=== PATIENT | male | born 1975 | race Caucasian/White ===

== ENCOUNTER 2016-12-11 08:37 | Emergency (ER) | payer OTHER ==
[2016-12-11 08:57] VITALS: BP 125/81
== END 2016-12-11 12:56 | disposition home or self-care (01) ==
LOC: ED 08:37
DX: A49.02 Methicillin resistant Staphylococcus aureus infection, unspecified site (principal); M70.32 Other bursitis of elbow, left elbow; Y93.89 Activity, other specified
CPT/HCPCS: 90715; Q0092

== ENCOUNTER 2016-12-26 10:06 | Inpatient (IN) | payer OTHER ==
[~2016-12-26] VITALS: Ht 172.7 cm; Wt 83.9 kg
[2016-12-26 11:16] LABS: BASOPHIL % 0.1 % (0-2); PLATELET COUNT 239 x10^3mcL (130-400)
[2016-12-26 11:58] LABS: CARBON DIOXIDE 26.2 mmol/L (21-32); CHLORIDE SERUM 107 mmol/L (98-107); CREATININE SERUM 0.9 mg/dL (0.7-1.3); GFR1 > 60 mL/min; GLUCOSE SERUM 120 mg/dL (74-106); POTASSIUM SERUM 3.7 mmol/L (3.5-5.1); SODIUM SERUM 141 mmol/L (136-145); TOTAL PROTEIN, SERUM 7.9 g/dL (6.4-8.2)
[2016-12-26 11:59] LABS: ALBUMIN 4.3 g/dL (3.4-5.0); BILIRUBIN TOTAL 0.7 mg/dL (0.20-1.00); CALCIUM 8.5 mg/dL (8.5-10.1)
[2016-12-26 12:00] LABS: ALKALINE PHOSPHATASE 97 U/L (46-116); ALT/SGPT 39 U/L (16-63); AST/SGOT 24 U/L (15-37)
[2016-12-26] MEDS ORDERED: PEPCID20 MG PO (12:42)
[2016-12-26] MEDS ORDERED: RISPERDAL1 M1 PO (12:42)
[2016-12-26] MEDS ORDERED: CLINDAMYCIN HC300 MG PO (12:42)
[2016-12-26] MEDS ORDERED: DESMOPRESSIN A0.1 MG PO (12:43)
[2016-12-26] MEDS ORDERED: DITROPAN XL5 MG PO (12:43)
[2016-12-26 13:14] LABS: AMYLASE 44 U/L (25-115); LIPASE 108 IU/L (73-393)
[2016-12-26 13:24] LABS: FREE T4 1.21 ng/dL (0.76-1.46)
[2016-12-26 13:32] LABS: T4(THYROXINE) 14.3 ug/dL (4.7-13.3)
[2016-12-26 13:35] LABS: CHOLESTEROL 129 mg/dL (<200); CHOLESTEROL/HDL RATIO 4.2; HDL CHOLESTEROL 31 mg/dL (40-60)
[2016-12-26 13:46] LABS: T3 TOTAL 1.55 ng/mL
[2016-12-26 13:53] LABS: TRIGLYCERIDES 508 mg/dL (<150)
[2016-12-26 13:54] VITALS: BP 146/102
[2016-12-26 15:20] LABS: MAGNESIUM 2.2 mg/dL (1.8-2.4)
[2016-12-26 18:18] VITALS: BP 145/96
[2016-12-26 22:32] VITALS: BP 140/101
[2016-12-27 06:31] VITALS: BP 118/74
[2016-12-27 06:39] LABS: CHLORIDE SERUM 109 mmol/L (98-107); CREATININE SERUM 0.8 mg/dL (0.7-1.3); GFR1 > 60 mL/min; GLUCOSE SERUM 101 mg/dL (74-106); MAGNESIUM 2.1 mg/dL (1.8-2.4); POTASSIUM SERUM 3.9 mmol/L (3.5-5.1); SODIUM SERUM 141 mmol/L (136-145)
[2016-12-27 06:46] LABS: BASOPHIL % 0.2 % (0-2); PLATELET COUNT 198 x10^3mcL (130-400); RED CELL DISTRIBUTION WIDTH 13.1 % (11.5-14.5)
[2016-12-27 09:30] VITALS: BP 109/74
[2016-12-27 12:14] VITALS: BP 123/77
[2016-12-27 18:20] VITALS: BP 108/72
[2016-12-27 18:23] VITALS: BP 141/90
[2016-12-27 20:52] LABS: microscopic required? NO
[2016-12-27 20:56] LABS: UA SPECIFIC GRAVITY 1.015 (1.005-1.035); urine erythrocyte NEGATIVE (NEGATIVE)
[2016-12-27 21:04] LABS: AMPHETAMINE QUAL UR NONE DETECTED (NEG <=1000)
[2016-12-27 22:01] VITALS: BP 118/73
[2016-12-28 06:09] VITALS: BP 128/82
[2016-12-28 10:08] VITALS: BP 124/82
[2016-12-28 14:09] VITALS: BP 139/95
[2016-12-28 17:30] VITALS: BP 131/85
[2016-12-28 22:28] VITALS: BP 116/51
[2016-12-29 06:42] LABS: BASOPHIL % 0.4 % (0-2); PLATELET COUNT 218 x10^3mcL (130-400)
[2016-12-29 06:45] LABS: CALCIUM 8.5 mg/dL (8.5-10.1); CARBON DIOXIDE 26.6 mmol/L (21-32); CHLORIDE SERUM 107 mmol/L (98-107); CREATININE SERUM 0.9 mg/dL (0.7-1.3); GFR1 > 60 mL/min; GLUCOSE SERUM 104 mg/dL (74-106); POTASSIUM SERUM 3.9 mmol/L (3.5-5.1); SODIUM SERUM 142 mmol/L (136-145)
[2016-12-29 06:47] VITALS: BP 113/74
[2016-12-29 10:24] VITALS: BP 117/71
[2016-12-29] MEDS ORDERED: APAP/HYDROCODON1 T15 PO (14:23)
[2016-12-29] MEDS ORDERED: AUG500 PO (14:25)
[2016-12-29] MEDS ORDERED: DIFLUCAN200 MG PO (14:28)
[2016-12-29] MEDS ORDERED: INDOMETHACIN50 MG PO (14:30)
[2016-12-29] MEDS ORDERED: COLACE100 MG PO (15:32)
[2016-12-29 15:44] VITALS: BP 117/71
== END 2016-12-29 17:00 | disposition home or self-care (01) | DRG 351 ==
LOC: ED 10:06 → DU 12:09 → MU 12:09 → DU 13:37 → MU 12-27 22:01
PROVIDERS: Emergency Medicine; ADMIT Family Medicine
DX: M71.122 Other infective bursitis, left elbow (principal); N32.81 Overactive bladder; L03.114 Cellulitis of left upper limb; G80.9 Cerebral palsy, unspecified; B35.1 Tinea unguium; E02 Subclinical iodine-deficiency hypothyroidism; E78.5 Hyperlipidemia, unspecified; F44.4 Conversion disorder with motor symptom or deficit; K21.9 Gastro-esophageal reflux disease without esophagitis; Z68.28 Body mass index [BMI] 28.0-28.9, adult
CPT/HCPCS: 83880; 84439; J0295; J2270; J3490; J7030; Q0092; Q9967

== ENCOUNTER 2017-01-11 09:31 | Emergency (ER) | payer OTHER ==
[~2017-01-11] VITALS: Ht 172.7 cm; Wt 85.3 kg
[~2017-01-11 09:31] MED LIST: APAP/HYDROCODON1 T15 PO; AUG500 PO; CLINDAMYCIN HC300 MG PO; COLACE100 MG PO; DESMOPRESSIN A0.1 MG PO; DIFLUCAN200 MG PO; DITROPAN XL5 MG PO; INDOMETHACIN50 MG PO; PEPCID20 MG PO; RISPERDAL1 M1 PO
[2017-01-11 11:12] VITALS: BP 123/76
== END 2017-01-11 11:13 | disposition home or self-care (01) ==
LOC: ED 09:31
DX: L03.114 Cellulitis of left upper limb (principal); L02.512 Cutaneous abscess of left hand; R62.50 Unspecified lack of expected normal physiological development in childhood; G80.9 Cerebral palsy, unspecified
CPT/HCPCS: J0696

== ENCOUNTER 2017-03-02 09:18 | Inpatient (IN) | payer OTHER ==
[~2017-03-02] VITALS: Ht 172.7 cm; Wt 84.0 kg
--- NOTE | 2017-03-02 09:55 | NUR ---
PT BROUGHT IN BY CAREGIVER TO BE EVALUATED FOR THE COMPLAINT OF ABDOMINAL DISTENSION, GENERALIZED ABDOMINAL PAIN, AND TWO EPISODES OF DIARRHEA WHICH OCCURRED YESTERDAY. PT HAS NOT HAD A BOWEL MOVEMENT TODAY. PTS CAREGIVER GAVE THE PT IMMODIUM YESTERDAY. ABDOMEN IS FIRM AND DISTENDED. BOWEL SOUNDS ARE HYPOACTIVE IN ALL FOUR QUADRANTS. PT HAS HX OF MR. PT IS ALMOST NON-VERBAL BUT ABLE TO MAKE SOUNDS TO ANSWER YES AND NO QUESTIONS.
[2017-03-02 10:15] LABS: BASOPHIL % 0.4 % (0-2); PLATELET COUNT 304 x10^3mcL (130-400); RED CELL DISTRIBUTION WIDTH 13.8 % (11.5-14.5)
[2017-03-02 10:23] LABS: ALBUMIN 3.6 g/dL (3.4-5.0); BILIRUBIN TOTAL 1.8 mg/dL (0.20-1.00); CALCIUM 8.4 mg/dL (8.5-10.1); CARBON DIOXIDE 20.7 mmol/L (21-32); CREATININE SERUM 1.4 mg/dL (0.7-1.3)
--- NOTE | 2017-03-02 10:24 | NUR ---
STRAIGHT CATH TO OBTAIN URINE SAMPLE. PT TOLERATED VERY WELL. URINE SPECIMEN SENT TO LAB.
--- NOTE | 2017-03-02 10:26 | NUR ---
PT TAKEN TO CT VIA GURNEY AND IN A STABLE CONDITION AT THIS TIME.
[2017-03-02 10:28] LABS: POTASSIUM SERUM 2.3 mmol/L (3.5-5.1)
--- NOTE | 2017-03-02 10:49 | NUR ---
CRITICAL LACTIC ACID LEVEL RECEIVED & RELAYED TO DR. CONDE. REPEAT ORDERED FOR 2 HOURS POST INITIAL DRAW. PURPLE SEPSIS CHECKLIST INITIATED.ALSO REPORTED TO BRIGHT MON.
--- NOTE | 2017-03-02 10:50 | NUR ---
PT RETURNED FROM CT WITHOUT INCIDENCE
[2017-03-02 11:09] LABS: UA SPECIFIC GRAVITY 1.025 (1.005-1.035); microscopic required? YES; urine erythrocyte NEGATIVE (NEGATIVE)
--- NOTE | 2017-03-02 11:39 | NUR ---
ATTEMPTED 4 TIMES FOR NG TUBE INSERTION USING BOTH NARES. 2 ATTEMPTS BY MYSELF AND 2 ATTEMPTS BY YAA BAHENA WITH ALL ATTEMPTS BEING UNSUCCESSFUL. DR. CONDE AWARE AND WANTS TO HOLD OFF ON ANY MORE ATTEMPTS AT THIS TIME.
[2017-03-02 13:01] LABS: MAGNESIUM 2.1 mg/dL (1.8-2.4); PHOSPHOROUS 1.6 mg/dL (2.5-4.9)
--- NOTE | 2017-03-02 13:04 | NUR ---
REPORT CALLED TO YAA BOOGIE WHO TOOK REPORT FOR RAUDEL WHO WILL BE THE PRIMARY RN ONCE THE PT IS TRANSFERED FROM ED TO TELE UNIT
[2017-03-02 13:09] LABS: T3 TOTAL 0.9 ng/mL
[2017-03-02 13:14] LABS: FREE T4 0.96 ng/dL (0.76-1.46); FREE THYROXINE INDEX 2.6 ug/dL (1.4-4.5); T4(THYROXINE) 7.5 ug/dL (4.7-13.3)
[2017-03-02 13:36] LABS: AMPHETAMINE QUAL UR NONE DETECTED (NEG <=1000)
--- NOTE | 2017-03-02 14:08 | NUR ---
REC'D PT FROM ER VIA [facility]. PT IS AAOX2. GARBLED SPEECH. HX OF MRValdez TELE #32 ST MK=[id number]. EXP WHEEZE HEARD MAGDALENE. NO SOB NOTED. PT ON 2L O2 VIA NC. BS ACTIVE X4. ABD FIRM AND DISTENDED. DENIES PAIN OR DISCOMFORT. IV NOTED TO RFA. INTACT AND PATENT. SAFETY AND COMFORT MEASURES IN PLACE. ORIENTED PT TO CALL LIGHT. BED IN LOWEST POSITION. WILL ENDORSE TO PRIMARY RN.
[2017-03-02 14:23] VITALS: BP 131/92
[2017-03-02 17:40] VITALS: BP 135/91
--- NOTE | 2017-03-02 17:59 | NUR ---
DR WONG EXAMINED THE PT. HIS ABDOMEN IS HARD AND DISTENDED. NPO.
--- NOTE | 2017-03-02 18:06 | NUR ---
AAO TO PERSON AND PLACE. TELE # 32 ST 107. SPEECH SLURRED, ABLE TO MAKE NEEDS KNOWN. IV SITE CDI. NPO. O2 2L NC.
[2017-03-02 19:39] VITALS: BP 131/83
[2017-03-02 19:41] LABS: CALCIUM 7.9 mg/dL (8.5-10.1); CARBON DIOXIDE 19.3 mmol/L (21-32); CHLORIDE SERUM 105 mmol/L (98-107); GFR1 > 60 mL/min; GLUCOSE SERUM 145 mg/dL (74-106); SODIUM SERUM 139 mmol/L (136-145)
[2017-03-02 19:44] LABS: POTASSIUM SERUM 2.5 mmol/L (3.5-5.1)
--- NOTE | 2017-03-02 19:47 | NUR ---
RECEIVED PT IN BED AWAKE GEN WEAKNESS VERBAL, DIFFICULTY BREATHING 02 @ 2L/MIN NC SATURATING 94% LUNGS SOUND WITH CRACKLES AND WHEEZES, ABD VERY DISTENDED AND FIRM, HYPOACTIVE BS X4 QUADRANTS DENIES PAIN NO NAUSEA OR VOMITING, IVF NS INFUSING @ 126 CC/HR IV ACCESS @ RFA PATENT NON INFIL, BP 131/83, HR 125, RR 22, AFEBRILE, CALLED RESIDENT ON DUTY SPOKE TO DR RAMIREZ, DR TALBERT STILL IN THE MEETING, REPORT GIVEN TO DR RAMIREZ RE PT'S CONDITION AND INFORMED MD IVF OFF AT THIS TIME, MD WILL COME TO SEE THE PT, CONT TO MONITOR.
[2017-03-02 19:56] VITALS: BP 131/83
--- NOTE | 2017-03-02 20:35 | NUR ---
COMPUTER SYSTEMS TECHNOLOGY INSTRUCTOR CAME FOR ABG AND HHN TX ORDERED, NGT INSERTED TO RT NARES FR#16 ORDERED KUB TO CHECK FOR PLACEMENT, CONT TO MONITOR.
--- NOTE | 2017-03-02 22:26 | NUR ---
RADIOLOGY CONFIRMED RIGHT PLACEMENT OF NGT, ATTACHED NGT TO LOW INTERMITTENT SUCTION, K-RIDER HANGED PER MD'S ORDER FOR POTASSIUM LEVEL OF 2.5, CONT TO MONITOR.
--- NOTE | 2017-03-02 23:44 | NUR ---
PT IS MOANING REPOSITIONED TO COMFORT NGT INPLACED, MORPHINE IVP GIVEN PER PRN ORDER, CONT TO MONITOR.
--- NOTE | 2017-03-03 02:33 | NUR ---
PT ASLEEP NGT TO LOW INTERMITTENT SUCTION HAS GREENISH BLACK OUTPUT APPROX 300 CC SINCE STARTED, ABD STILL FIRM DISTENDED, K-RIDER GOING, CHECKED AT INTERVAL
--- NOTE | 2017-03-03 06:06 | NUR ---
PT WITH AUDIBLE CRACKLES AND WHEEZING BILAT LUNGS, CALLED RT FOR HHN TX, CONTINOUS 02 @ 2L/MIN NC SATURATING 93%, PT NOT VOIDING DURING THE SHIFT DR SQUIRES MADE AWARE AWAITING FOR ORDERS, HAS 300 CC OUTPUT FROM NGT, NO BM, NOT PASSING GAS, ABD STILL DISTENDED, REPOSITIONED TO COMFORT, BILAT SOFT WRIST RESTRAINT STILL UTILIZED PT WITH ATTEMPT OF PULLING OUT NGT, CONT TO MONITOR.
[2017-03-03 06:21] VITALS: BP 137/81
[2017-03-03 06:43] LABS: PLATELET COUNT 241 x10^3mcL (130-400); RED CELL DISTRIBUTION WIDTH 14.1 % (11.5-14.5)
[2017-03-03 06:52] LABS: CALCIUM 7.8 mg/dL (8.5-10.1); CARBON DIOXIDE 25.3 mmol/L (21-32); CHLORIDE SERUM 110 mmol/L (98-107); CREATININE SERUM 1.1 mg/dL (0.7-1.3); GFR1 > 60 mL/min; GLUCOSE SERUM 142 mg/dL (74-106); MAGNESIUM 2.5 mg/dL (1.8-2.4); PHOSPHOROUS 1.5 mg/dL (2.5-4.9); SODIUM SERUM 140 mmol/L (136-145)
--- NOTE | 2017-03-03 07:15 | NUR ---
AAO X1.HX OF MENTAL RETARDATION ALSO WITH GARBLED SPEECH.NO SIGNS OF PAIN.R NARES WITH NGT CONNECTED TO LIS DRAINING BROWNISH FLUID.LUNGS WITH RHONCHI BILAT.ON SR-ST ON THE MONITOR.IVF NS GOING AT 10 ML/HR INFUSING WELL.ON BILAT SOFT WRIST RESTRAINTS FOR ATTEMPTING TO PULL NGT.HOB AT 30 DEG ANGLE FOR ASPIRATION PRECAUTION.FREQUENT TURNS AND CHECKS IMPLEMENTED.WILL CONTINUE TO MONITOR PT.
[2017-03-03 08:00] VITALS: BP 118/78
--- NOTE | 2017-03-03 09:46 | NUR ---
AND MEDICINE TEAM AT BEDSIDE.INFORMED PT ABOUT THE PLAN OF CARE.WILL GIVE LASIX FOR THE RHONCHI HEARD ON HIS LUNGS AND WILL ORDER SMALL BOWEL FOLLOW THRU.
[2017-03-03 09:56] LABS: BAND NEUTROPHIL 14 % (0-10); BASOPHIL 0 % (0-2); MONOCYTE 14 % (0-7); MYELOCYTE 1 % (0-2); SEGMENTED NEUTROPHILS 48 % (37-75)
--- NOTE | 2017-03-03 10:30 | NUR ---
JC INSERTED ORDERED.
--- NOTE | 2017-03-03 11:30 | NUR ---
RADIOLOGY DOING SMALL BOWEL FOLLOW THRU AT BEDSIDE.
--- NOTE | 2017-03-03 11:30 | NUR ---
JC DRAINED 1500 ML AFTER AN HOUR PUTTING THE JC.
[2017-03-03 11:50] VITALS: BP 133/84
--- NOTE | 2017-03-03 14:59 | NUR ---
INFORMED DR WONG ABOUT THE K=3.0
--- NOTE | 2017-03-03 16:29 | NUR ---
PT COMFORTABLY SLEEPING IN BED.NO SIGNS OF DISCOMFORT.
--- NOTE | 2017-03-03 16:50 | NUR ---
POTASSIUM GIVEN ORDERED FOR K=3.0
[2017-03-03 17:32] VITALS: BP 128/85
--- NOTE | 2017-03-03 18:17 | NUR ---
NARGIS BOWEL FOLLOW THRU COMPLETED.RESUMED PT TO NGT TO LIS.
--- NOTE | 2017-03-03 18:39 | NUR ---
NO SIGNIFICANT CHANGE NOTED.WILL ENDORSE TO NEXT SHIFT.
--- NOTE | 2017-03-03 19:40 | NUR ---
SHIFT REASSESSMENT DONE.PATIENT ALERT ORIENTED X 2 CEREBRAL PALSY,REMAINS A TOTAL CARE.GARBLED SPEECH.TOTAL CARE.O2 AT 2 LITERS,HHN TX SCHEDULED.GEN WEAKNESS.NS AT 60 CC/ HOUR.NGT TO LOW SUCTION,DARK GREENISH OUTPUT.FAMILY AT BEDSIDE,SUPPORTIVE OF CARE.L ELBOW DRY SCAB NOTED ON ADMISSION.BILAT SOFT WRIST RESTRAINT FOR SAFETY TO NOT REMOVE TUBINGS AND IV.
--- NOTE | 2017-03-03 19:41 | NUR ---
PATIENT ABDOMEN LARGE AND DISTENDED,NGT TO LOW SUCTION.DULCOLAX,COLACE ORDERED.FAMILY WORRIED THAT PATIENT WON'T HAVE BOWEL MOVEMENT.
[2017-03-03 21:16] VITALS: BP 145/86
--- NOTE | 2017-03-03 22:05 | NUR ---
SBFT WAS COMPLETED FROM DAY SHIFT.PM MEDS GIVEN THRU NGT,OFF AT THIS TIME,FOR 30 MINUTES.GIVEN PAIN SHOT ALSO PER SISTER REQUEST AND SAYS HE IS ON PAIN,ALSO GIVEN ZOFRAN IVP.DULCOLAX TAB GIVEN,ABD HARD AND DISTENDED HAD BM 8/4.
--- NOTE | 2017-03-04 01:51 | NUR ---
PATIENT SUCTIONED EARLY SHIFT,SOUND CONGESTED BUT ONLY WHITISH SCANTY WHEN RT DID IT.NOW HE SOUND UNCOMFORTABLE,RT SUGGESTED TO DR SHAW MONREAL AND ANOTHER N ORDER.
--- NOTE | 2017-03-04 02:40 | NUR ---
DR SQUIRES REMINDED AGAIN ABOUT THE RESP TX THAT RT SUGGESTED,HE DID NOT ORDER IT YET,PATIENT SUCTIONED BUT ONLY WHITISH MUCOUS ON HIS THROAT,NEED THE MUCOMIST TX.
--- NOTE | 2017-03-04 04:39 | NUR ---
CPT AT THIS TIME,TOLERATING WELL.WILL INITIATE MUCOMYST TX IN AM.
--- NOTE | 2017-03-04 05:42 | NUR ---
I AND O MEASURED.SLEEPING WELL AFTER CPT.NGT TO LOW SUCTION.GREENISH BILE COLORED OUTPUT/DRAINAGE.WILL ENDORSE TO NEXT SHIFT.
--- NOTE | 2017-03-04 05:57 | NUR ---
NEW SUCTION CANNISTER AT THIS TIME.
[2017-03-04 06:16] VITALS: BP 135/81
[2017-03-04 06:27] LABS: CARBON DIOXIDE 25.6 mmol/L (21-32); CHLORIDE SERUM 112 mmol/L (98-107); CREATININE SERUM 0.9 mg/dL (0.7-1.3); GFR1 > 60 mL/min; GLUCOSE SERUM 117 mg/dL (74-106); MAGNESIUM 2.4 mg/dL (1.8-2.4); PHOSPHOROUS 1.6 mg/dL (2.5-4.9); SODIUM SERUM 147 mmol/L (136-145)
[2017-03-04 06:53] LABS: POTASSIUM SERUM 2.8 mmol/L (3.5-5.1)
--- NOTE | 2017-03-04 06:54 | NUR ---
K+ LEVEL AT THIS TIME 2.8.DR SQUIRES MADE AWARE.WILL ENDORSE TO [facility] TO FOLLOW UP WITH AM PHYSICIAN.
[2017-03-04 06:58] LABS: PLATELET COUNT 219 x10^3mcL (130-400); RED CELL DISTRIBUTION WIDTH 14.4 % (11.5-14.5)
--- NOTE | 2017-03-04 08:00 | NUR ---
RECEIVED THIS AM SLEEPING BUT AROUSABLE. FOLLOWS SIMPLE COMMANDS. NO ACUTE DISTRESS NOTED. IVF INFUSING WELL ANAD SITE CLEAR. NGTUBE IN PLACE CONNECTED TO LOW INTERITTENT SUCTION. JC CATH DRAINING WELL.MAGDALENE. SOFT WRIST RESTRAINTS IN PLACE TO PREV. PT FROM PULLING OUT NGT.SIDE RAILS UP. WILL CONT. WITH PLAN OF CARE.
[2017-03-04 09:35] VITALS: BP 137/91
--- NOTE | 2017-03-04 11:07 | NUR ---
FLEETS ENEMA GIVEN PER ORDER. PT TOLERATED WELL.
[2017-03-04 12:22] LABS: rbc morphology (normal/abnorm) ABNORMAL (NORMAL)
[2017-03-04 12:23] LABS: PLATELET MORPHOLOGY N
--- NOTE | 2017-03-04 12:54 | NUR ---
PT HAD LARGE WATERY STOOL X1 AFTER FLEETS ENEMA. ABD. STILL DISTENDED AND NGTUBE STILL IN PLACE. WILL CONTINUE TO MONITOR.
[2017-03-04 13:27] VITALS: BP 133/94
[2017-03-04 15:49] VITALS: Ht 172.7 cm; Wt 84.0 kg
--- NOTE | 2017-03-04 16:02 | NUR ---
Initial Nutrition Assessment Dx: Ileus, Hypokalemia PMHx: Cerebral palsy, GERD, overactive bladder, subclinical hyperthyroidism, HLD, GERD PSHx: None Labs: Na 147 H, K 3 L, BG 117 H, Phosphorous 1.6 L, H/H 12.1/37 L; (03/02) TBili 1.8 H, A1C 5.4 Meds: Colace, dulcolax, lactinex, neutra-phos, Pepcid, NS IV, zofran Current Diet Order: NPO except meds (x2 days since 03/04) (gaseous abd distention and ileus) Ht: 68", 5' 8". Wt: 185 lb, 84 kg. BMI: 28.2 kg/m2 (Overweight) IBW: 154 lb, 70 kg. %IBW: 120%. UBW: Unable to obtain Age: 41 Y/O M Food Allergies: Unable to obtain Skin: Dry scab L elbow. Mehrdad 16. Edema: None GI: Abd distended, firm. Hypoactive bowel sounds. Last BM 03/04. Large watery stools x1 after fleet enema given per nursing notes. NGT Output: (03/03) 360 ml; (03/04) 400 ml I/O: 1732/1060 (+672 ml) Pt found with possible aspiration pneumonia masked by dehydration, mild to moderate Ileus per doctor's notes. Per doctor's progress note 03/03, pt is s/p NGT placement with 300 ml, 3 L nasal cannula, still grimacing upon palpation of abd, pt had BM x1. Per Bed Huddle reports, pt with +NGT to suction, 400 ml of green bile output yesterday, KUB showed ileus, but small bowel follow through procedure showed no obstruction, will be giving pt dulcolax and fleet enema today. Pt seen with +NGT to R nare, awake, appears non-verbal, appears adequately nourished, no visitors at bedside. Problem with: N: None. V: None. D: None. C: None. Problems with: Chewing: None. Teeth intact. Swallowing: Unable to assess. Diet at Home (Pt is a resident at [facility]): No information noted in pt's hard chart Education: Not appropriate for nutrition education due to cerebral palsy, developmental delay Estimated Nutritional Needs Based CBW 185 lb, 84 kg. Energy: 2100 kcal/day (25 kcal/kg for Maintenance) Protein: 84 gm/day (1 gm/kg for Maintenance) Fluids: 2520 ml/day (30 ml/kg for Maintenance) or per doctor Nutrition Diagnosis Inadequate oral intakes related to possible ileus as evidenced by current NPO status, pt with NGT to suction Intervention 1. Consider advance diet per doctor if/when medically appropriate. 2. Consider advance as tolerated to Regular diet if/when medically appropriate. 3. If unable to advance to PO diet within 5-7 days, consider alternative nutrition support (PN Support) if/when medically appropriate. Monitor/Evaluate Goal: NPO <5-7 days; Diet advancement Monitor: NPO status, diet advancement, labs, skin integrity, GI function, weights F/U in 2-3 days as HIGH risk (03/06-03/07)
[2017-03-04 17:16] VITALS: BP 145/93
[2017-03-04 18:25] LABS: CALCIUM 8.2 mg/dL (8.5-10.1); CARBON DIOXIDE 26.4 mmol/L (21-32); CHLORIDE SERUM 116 mmol/L (98-107); CREATININE SERUM 0.8 mg/dL (0.7-1.3); GFR1 > 60 mL/min; GLUCOSE SERUM 111 mg/dL (74-106); POTASSIUM SERUM 3.2 mmol/L (3.5-5.1); SODIUM SERUM 149 mmol/L (136-145)
--- NOTE | 2017-03-04 19:00 | NUR ---
REMAINS IN NO ACUTE DISTRESS, AWAKE, FOLLOWS SIMPLE COMMANDS. NO C/O PAIN OR DISCOMFORT AT THIS TIME. NGTUBE REMAINS IN PLACE TO LOW INTER.SX.250ML OF CLEAR DRAINAGE SUCTIONED.ORAL SUCTION AND ORAL CARE DONE. JC CATH REMAINS IN PLACE DRAINING WELL. MAGDALENE. SOFT WRIST RESTRAINTS IN PLACE TO PREVENT PT FROM PULLING OUT TUBES.IVF INFUSING WELL AND SITE CLEAR. SIDE RAILS UP. WILL BE ENDORSED TO INCOMING SHIFT.
--- NOTE | 2017-03-04 19:20 | NUR ---
RECEIVED PT INBED AAOX2 , PT HAS HX OF CEREBRAL PALSY DEVELOPMENTAL DELAY , PT HAS NGT TO LOW SUCTION , CLOUDY FLUIDS NOTED, PT DENY N/V AT THE MOMENT , NO BS NOTED , ABD DISTENDED HARD AND TENDER TO THE TOUCH , JC TP GRAVITY DRAINING CLUDY URINE LOTS OF SEDIMENTS NOTED, ,PT'S ON TELE NUMBER [address] HR 101, PIV TO RFA INTACT INFUSING WELL .
--- NOTE | 2017-03-04 21:15 | NUR ---
LATE ENTRY: PATIENT'S PLAN OF CARE WAS DISCUSSED AND REVIEWED WITH OPTOMETRIC TECH: MOLLY WHALEY
[2017-03-04 22:11] VITALS: BP 129/75
--- NOTE | 2017-03-04 23:39 | NUR ---
PT'S C/O LOWER ABD PAIN STATED "I WANT TO GO PEE, NOTED PT'S JC BAG HAS NO OUTPUT SINCE 190, LOST OF SEDIMENTS NOTED, DR TALBERT AWARE ORDERED TO IRRIGATE JC PRN , POST IRRIGATION 300ML OF CLOUDY URINE NOTED,PT DENY PAIN POST IRRIGATION , TURNED PT TO LEFTSIDE FOR COMFORT , NGT INPLACE TO LOW SUCTION , PIV INTACT INFUSING WELL , TELE ST HR 102.
--- NOTE | 2017-03-05 00:35 | NUR ---
I HAVE REVIEWED THE DATA COLLECTION BY ENEDINA (NAME): MOLLY WHALEY ENTERED ON (DATE/TIME):2252H 03/04/17 I CONCUR WITH THE DATA AND ANY EXCEPTIONS OR COMMENTS ARE LISTED BELOW:
--- NOTE | 2017-03-05 02:51 | NUR ---
POST MORPHINE PT'S IN BED WITH EYES CLOSED ,PIV INTACT INFUSING WELL TELE NSR HR 88.
[2017-03-05 05:16] VITALS: BP 138/83
--- NOTE | 2017-03-05 06:08 | NUR ---
PT'S IN BED WITH EYES CLOSED, NGT INPLACE DRAININED 100ML OF CLOUDY FLUIDS NOTED, ABD REMAINED DISTENDED/ HARD TO TOUCH BOWEL SOUNDS NOTED, TELE ST HR 103 , PIV INTACT INFUSING WELL. WILLC ON'T TO MONITOR PT CLOSLEY.
[2017-03-05 06:16] LABS: CHLORIDE SERUM 118 mmol/L (98-107); CREATININE SERUM 0.8 mg/dL (0.7-1.3); GFR1 > 60 mL/min; GLUCOSE SERUM 104 mg/dL (74-106); MAGNESIUM 2.5 mg/dL (1.8-2.4); PHOSPHOROUS 2.3 mg/dL (2.5-4.9); SODIUM SERUM 158 mmol/L (136-145)
[2017-03-05 06:28] LABS: BASOPHIL % 0.2 % (0-2); PLATELET COUNT 201 x10^3mcL (130-400)
[2017-03-05 06:33] LABS: RED CELL DISTRIBUTION WIDTH 14.7 % (11.5-14.5)
--- NOTE | 2017-03-05 08:00 | NUR ---
RECEIVED PT IN BED ALERT AND ORIENTED TO PERSON AND PLACE ONLY. SPEECH VERY SLOW AND GARBLED. NSR 85 ON TELE MONITOR. DENIES PAIN OR DISCOMFORT AT THIS TIME. ON O2 VIA NC AT 3L. RHONCHI AUSCULTATED TO MAGDALENE LUNG SOUNDS. NO SOB. NGT IN PLACE TO LOW INTERMITTENT SUCTION WITH LIGHT BROWN CLEAR OUTPUT. ABDOMEN DISTENDED/FIRM, BS HYPOACTIVE. JC CATHETER DRAINING TO YELLOW URINE. NO EDEMA NOTED. SKIN CDI. GENERALIZED WEAKNESS. SCDS TO BLE. FAMILY AT BEDSIDE. INSTRUCTED TO CALL FOR ASSISTANCE WHEN IN NEED.
--- NOTE | 2017-03-05 08:20 | NUR ---
BEDSIDE ROUNDS DONE WITH DR MORALES, EXPLAINED TO FAMILY PTS STATUS AND PLAN OF CARE.
[2017-03-05 10:00] VITALS: BP 137/77
--- NOTE | 2017-03-05 10:54 | NUR ---
PT HAD WATERY BM X2. ASSISTED TO USE BEDPAN. PT CLEANED AND ASSISTED NEEDED.
[2017-03-05 14:00] VITALS: BP 149/95
[2017-03-05 15:43] VITALS: BP 149/95
--- NOTE | 2017-03-05 18:02 | NUR ---
PT LYING IN BED, ALERT, ABLE TO FOLLOW COMMANDS AND MAKE NEEDS KNOWN. NGT TO LOW INTERMITTENT SUCTION. JC CATHETER DRAINING WELL TO YELLOW URINE WITH SEDIMENTS. SCDS TO BLE. DENIES PAIN AT THIS TIME. MAGDALENE SOFT WRIST RESTRAINTS IN PLACE FOR SAFETY. CALL LIGHT WITHIN REACH.
[2017-03-05 18:45] VITALS: BP 133/87
--- NOTE | 2017-03-05 19:45 | NUR ---
RECEIVED PT FROM PREVIOUS SHIFT. PT A/OX2. FAMILY AT BEDSIDE. NO ACUTE DISTRESS ON RA. NG TO LIS. F/C DRAINING TO GRAVITY WITH ALPA OUTPUT. IV PATENT AND INFUSING WELL WITH NO S/S OF INFILTRATION. CALL LIGHT WITHIN REACH, BED IN LOW POSITION. WILL CONTINUE TO MONITOR.
--- NOTE | 2017-03-05 20:31 | NUR ---
SOFT WRIST RESTRAINTS REMOVED AT THIS TIME. PULSES PALPABLE, CAP REFIL <3 SEC. PT REORIENTED TO ROOM, SURROUNDINGS, AND EQUIPMENT. PT INSTRUCTED NOT TO REMOVE NG TUBING, F/C, OR IV LINE. PT VERBALIZED UNDERSTANDING. CALL LIGHT WITHIN REACH, BED IN LOW POSITION. WILL CONTINUE TO MONITOR.
[2017-03-05 21:38] VITALS: BP 145/95
--- NOTE | 2017-03-06 00:01 | NUR ---
PT RESTING AT THIS TIME IN NO ACUTE DISTRESS. RR EVEN AND UNLABORED. IV PATENT AND INFUSING WELL WITH NO S/S OF INFILTRATION. CALL LIGHT WITHIN REACH, BED IN LOW POSITION. WILL CONTINUE TO MONITOR.
--- NOTE | 2017-03-06 03:07 | NUR ---
PT C/O PAIN TO F/C SITE. IRRIGATED PRN PER ORDER. F/C DRAINING TO GRAVITY WITH NO S/S OF OBSTRUCTION. WILL CONTINUE TO MONITOR.
[2017-03-06 05:24] VITALS: BP 150/85
[2017-03-06 06:43] LABS: CALCIUM 8.3 mg/dL (8.5-10.1); CARBON DIOXIDE 31.7 mmol/L (21-32); CHLORIDE SERUM 120 mmol/L (98-107); CREATININE SERUM 0.9 mg/dL (0.7-1.3); GFR1 > 60 mL/min; GLUCOSE SERUM 128 mg/dL (74-106); MAGNESIUM 2.6 mg/dL (1.8-2.4); PHOSPHOROUS 2.2 mg/dL (2.5-4.9); POTASSIUM SERUM 3.1 mmol/L (3.5-5.1); SODIUM SERUM 158 mmol/L (136-145)
[2017-03-06 06:54] LABS: BASOPHIL % 0.4 % (0-2); PLATELET COUNT 217 x10^3mcL (130-400); RED CELL DISTRIBUTION WIDTH 14.5 % (11.5-14.5)
--- NOTE | 2017-03-06 08:13 | NUR ---
AAO TO PERSON AND PLACE. HISTORY OF CEREBRAL PALSY. TELE # 32 SR. LUNGS CTA. NO SOB. O2 SAT ON RA 98%. BS'S HYPOACTIVE. NGT TO RIGHT NARES DRAINING TANNISH GI CONTENTS TO LIS. PERIPHERAL PULSES PALPABLE. NO EDEMA. SCD BLE. NO C/O PAIN. NO SOB. COOPERATIVE. IV SITE LAC PATENT, CDI.
--- NOTE | 2017-03-06 08:28 | NUR ---
MEDICAL ROUNDS OCCURED WITH DR JAIME AND THE MEDICINE TEAM AT 0828. THE PLAN TODAY IS TO DC HIS NGT AND WE WILL TALK WITH DR JAMA ABOUT HIS PLANS. DR JAIME TALKED TO DR JAMA. KCL 60 MEQ WILL BE GIVEN PER DR JAMA ORDER AND THE ROUTINE DOSE OF KCL 20 MEQ BEING HELD FOR THIS AM DOSE ONLY PER DR JAMA.
--- NOTE | 2017-03-06 11:26 | NUR ---
DC'D NGT PER DR JAMA ORDER. PT TOLERATED WELL, HE'S HAPPY IT IS REMOVED.
[2017-03-06 13:22] VITALS: BP 132/90
--- NOTE | 2017-03-06 14:29 | NUR ---
JC CARE GIVEN.
--- NOTE | 2017-03-06 14:54 | NUR ---
Follow-up Nutrition Assessment Dx: Ileus, Hypokalemia Labs: Na 158H, K 3.1L, Cl 120H, BG 128H, Glob 4.4H, Ca 8.3L, Phos 2.2L, Tbili 1.8H, Amylase 23L, Magnes 2.6H, A1C 5.4, H/H 11.5/35L Meds: D5%, KCL, Lactinex, Lasix, Reglan, Zofran Diet: Full liquid NGT output: 300ml dark, bilious liquid I/O: 1790ml/1654ml (+136ml) Weights: (03/02) 185lb, (03/03) 185lb Skin: Intact. Mehrdad 16. Edema: No Last BM: 03/06. Bowel sounds hypoactive, abdomen firm and distended but decreasing vs 4 days ago. Pt found with possible aspiration pneumonia masked by dehydration, mild to moderate ileus per H&P note. Per progress note (03/05) KUB showed ileus but small bowel follow through noted no obstruction, gaseous distention, had fleet enema done. 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 Pt seen with NGT, alert, and having ice chips with nurse's help. Per RN pt had NGT removed after international relations teacher's visit to pt, pt finished all of lunch, full liquid, pt stated to having stomach pain after meal but no other symptoms. Pt with history of cerebral palsy, no family present, internal specialist unable to interview pt. Estimated Nutritional Needs unchanged from prior assessment: Current Body Weight 185lb, 84kg Energy: 2100 kcal/day (25kcal/kg for Maintenance) Protein: 84g/day (1g/kg for Maintenance) Fluid: 2550 ml/day (30ml/kg for Maintenance) or per doctor Nutrition Diagnosis Inadequate oral intakes related to possible ileus as evidenced by current NPO status, pt with NGT to suction. (Resolved) Intervention 1. Continue on full liquid diet as per MD 2. Consider advance as tolerated to Regular diet if/when medically appropriate Monitor/Evaluate Goal: NPO <5-7days; Diet advancement- Met Monitor: Diet tolerance, Labs, skin integrity, GI function, weights F/U in 3-5 days as MODERATE risk 03/09-03/11
--- NOTE | 2017-03-06 14:55 | NUR ---
1. Continue on full liquid diet as per MD 2. Consider advance as tolerated to Regular diet if/when medically appropriate
[2017-03-06 17:15] VITALS: BP 133/94
--- NOTE | 2017-03-06 18:27 | NUR ---
AAO TO PERSON AND PLACE. PT'S FAMILY IS PRESENT, SUPPORTIVE. TELE # 32 SR. NO C/O PAIN. PT HAD A SMALL BM THIS AM, AND LATER ON HE HAD A VERY LARGE LOOSE BROWN STOOL, IT FILLED THE BEDPAN. IV SITE LAC PATENT, CDI. COOPERATIVE.
--- NOTE | 2017-03-06 19:45 | NUR ---
AWAKE AND VERBALLY RESPONSIVE AT TIMES. FAMILY AT BEDSIDE VERY SUPPORTIVE OF PATIENT'S CURRENT PLAN OF CARE. IVF D4 1/2 NS WITHMEQ KCL AT 80CC/HR INFUAING VIA PERIPHERAL LINE AT THE RIGHT FOREARM TOLERATING WELL. WILL CONTINUE TO MONITOR.
[2017-03-06 21:09] VITALS: BP 112/64
--- NOTE | 2017-03-06 21:18 | NUR ---
APPARENTLY PT WITH PAIN LEVEL 5/10 , WITH FACIAL GRIAMCING TOUCHING HIS ABDOMEN, TORADOL 30MG IVP PRN MEDICATION. TURNED AND REPOSITIONED FOR COMFORT. KEPT CLEAN AND DRY.
--- NOTE | 2017-03-06 21:30 | NUR ---
MM=112/MIN, DR TALBERT MADE AWARE, CONTINUE TO DO FREQUENT VISUAL CHECK FOR SAFETY.
--- NOTE | 2017-03-06 22:21 | NUR ---
HR RANGING FEOM 150-162MIN, DR TALBERT WAS CALLED AND PAGE GATE X 3 AWAITNG FOR NEW ORDER. WILL CONTINUE TO MONITOR.
--- NOTE | 2017-03-07 00:10 | NUR ---
DR TALBERT ORDERED RT TO GIVE BREAYHING TREATMENT AND TO DO NASOTRACHEAL SUCTIONING. O2 SAT AT 3L/NC DOWN TO 87%. PLACED ON FACIAL MASK AT 10L.O2 SSAT CHECKED 95%. CHEST X-RAY DONE ORDERED. STILL CN=453/MIN . DR TALBERT AT BEDSIDE AWARE OF PATIENT'S CONDITION.
[2017-03-07 00:30] VITALS: BP 96/58
--- NOTE | 2017-03-07 02:09 | NUR ---
ABG WAS ORDERED AND RT AWARE.
[2017-03-07 02:10] VITALS: BP 109/63
[2017-03-07 02:11] LABS: CALCIUM 8.5 mg/dL (8.5-10.1); CARBON DIOXIDE 25.1 mmol/L (21-32); CREATININE SERUM 2.3 mg/dL (0.7-1.3); MAGNESIUM 2.7 mg/dL (1.8-2.4)
[2017-03-07 02:26] LABS: PHOSPHOROUS 0.8 mg/dL (2.5-4.9); POTASSIUM SERUM 2.9 mmol/L (3.5-5.1)
--- NOTE | 2017-03-07 02:27 | NUR ---
CL=664, K=2.9, PHOS=0.8, DR TALBERT IN THE UNIT AND AWARE OF THE CRITICAL LAB VALUES.
--- NOTE | 2017-03-07 02:27 | NUR ---
CONTINUES ON IVF D5 1/2 NS WITH 40MEQKCL AT 80ML/HR INFUSING VIA PERIPHERAL LINE AT THE RFA TOLERATING WELL. CONTINUE TO MONITOR.
--- NOTE | 2017-03-07 02:32 | NUR ---
BLADDER TRAINING IN PRORESS, PT APPARNETLY UNCOMFORTABLE IF JC CATH IS CALMPED, WITH FACIAL GRIAMCING AND MOANING.
--- NOTE | 2017-03-07 02:37 | NUR ---
DR GRAYSON WAS AT PT'S BEDSIDE, NOTICED WITH AGONAL BREATHING, [facility] WAS CALLED , THEN CPR INTITATED.JOSÉ MIGUEL CARTY WAS CALLED, BUT UNSUCCESSFUL,ODE ENDED AT 304, PRONOUNCED BY DR LINDA MILLER.
--- NOTE | 2017-03-07 03:11 | NUR ---
TALKED TO CORONERS C/O NURYS GUTIERREZ AND GAVE CLEARNACE TO RELEASE BODY TO MORTUARY OF CHOICE WITH CORONOR'S CASE BT=[id number].
--- NOTE | 2017-03-07 03:25 | NUR ---
CHARGE NURSE TRIED TO CALL [employer]. JURADO ([employer] PIN STICKER AT [facility], BUT PHONE , KEEPS ON RINGING, NO ANSWER, LEFT MESSAGE TO CALL JOSELIN THAKUR.
--- NOTE | 2017-03-07 03:26 | NUR ---
TALKED TO [facility] ([facility]) C/O LINDA AGUILERA WITH DN # [phone], SOMEBODY WILL CALL FOR CONFIRMATION FOR ANY POSSIBILITIES OF ORGAN DONATION.
--- NOTE | 2017-03-07 03:30 | NUR ---
TRIED TO CONTACT BERRY BILLINGSLEY (MOTHER) TEL NO. BUT NO ANSWER, LEFT [facility] TO CALL [facility].
--- NOTE | 2017-03-07 03:35 | NUR ---
CLEARNACE WAS GIVEN BY HORSESHOER C/O NURYS , POST MORTEM CARE RENDERED. NO PATIENT'S BELONGINGS UPON ADMISSION.
[2017-03-07 03:36] LABS: PLATELET COUNT 241 x10^3mcL (130-400)
[2017-03-07 03:56] LABS: RED CELL DISTRIBUTION WIDTH 14.7 % (11.5-14.5)
[2017-03-07 04:45] LABS: BAND NEUTROPHIL 18 % (0-10); METAMYELOCTE 11 % (0-2); MONOCYTE 1 % (0-7); SEGMENTED NEUTROPHILS 65 % (37-75)
--- NOTE | 2017-03-07 04:45 | NUR ---
CHARGE NURS WAS SHANNA TO TALK TO AGRICULTURAL CONSULTANT CONCEPCIÓN [phone], GAVE THE TEL NO OF PATIENT'S SISTER KIM [phone], BUT NO LONGER IN SERVICE. TEL NO OF JONY BILLINGSLEY NO LONGER IN SERVICE, TEL NO OF KIM ARDON, LEFT MESSAGAGE. AWAITNG FOR RETURN CALL.
[2017-03-07 04:47] LABS: PLATELET MORPHOLOGY PLATELETS NORMAL; rbc morphology (normal/abnorm) ABNORMAL (NORMAL)
--- NOTE | 2017-03-07 04:50 | NUR ---
LEFT MESSAGE AGAIN TO BERRY BILLINGSLEY AND ADRIEN CONKILN TO CALL JOSELIN THAKUR.
--- NOTE | 2017-03-08 17:26 | NUR ---
SOCIAL SERVICE NOTE/LATE ENTRY FOR 03/07/17- I WAS ASKED TO MEET WITH THIS PT'S FAMILY DUE TO PT'S , WHICH HAD NOT BEEN ANTICIPATED. I AND DR. MORALES MET WITH THIS FAMILY, WHICH CONSISTED OF THE PT'S PARENTS, ADULT SIBLINGS, ADULT GRANDCHILDREN AND A [id number]. THEY WERE APPROPRIATELY GRIEVING AND DISTRESSED. ALL CONCERNS AND QUESTIONS WERE ADDRESSED RELATIVE TO LIKELY CAUSE OF , STEPS TO TAKE RELATIVE TO DISPOSITION OF PT'S REMAINS AND QUESTIONS RE PURSUING A POSSIBLE AUTOPSY. PT'S FAMILY WAS ALSO ALLOWED TO SPEND APPROXIMATELY AN HOUR WITH THE PT'S BODY. [employer] SERVICES WERE OFFERED BUT DECLINED. SUPPORTIVE TX PROVIDED. FAMILY WAS PROVIDED MY CONTACT INFORMATION IN CASD THEY NEEDED ANYTHING ELSE.
== END 2017-03-07 05:24 | disposition expired | DRG 247 ==
LOC: ED 09:18 → DU 12:23
PROVIDERS: Emergency Medicine; Family Medicine; ADMIT Student in an Organized Health Care Education/Training Program
PROC: 5A12012 Performance of Cardiac Output, Single, Manual (ICD-10-PCS; principal; 2017-03-07)
PROC: 5A1935Z Respiratory Ventilation, Less than 24 Consecutive Hours (ICD-10-PCS; 2017-03-07)
PROC: 0BH17EZ Insertion of Endotracheal Airway into Trachea, Via Natural or Artificial Opening (ICD-10-PCS; 2017-03-07)
DX: K56.69 Other intestinal obstruction (principal); N17.0 Acute kidney failure with tubular necrosis; J96.01 Acute respiratory failure with hypoxia; J69.0 Pneumonitis due to inhalation of food and vomit; R65.11 Systemic inflammatory response syndrome (SIRS) of non-infectious origin with acute organ dysfunction; K63.1 Perforation of intestine (nontraumatic); E87.2 Acidosis; K56.7 Ileus, unspecified; E83.39 Other disorders of phosphorus metabolism; F44.4 Conversion disorder with motor symptom or deficit; G80.9 Cerebral palsy, unspecified; E86.0 Dehydration; E87.6 Hypokalemia; K21.9 Gastro-esophageal reflux disease without esophagitis; R32 Unspecified urinary incontinence; N32.81 Overactive bladder; E78.5 Hyperlipidemia, unspecified; E05.90 Thyrotoxicosis, unspecified without thyrotoxic crisis or storm; R62.50 Unspecified lack of expected normal physiological development in childhood; E02 Subclinical iodine-deficiency hypothyroidism; I46.9 Cardiac arrest, cause unspecified; E87.0 Hyperosmolality and hypernatremia; D64.9 Anemia, unspecified
CPT/HCPCS: 36600; 82962; 83880; 84439; J0132; J0171; J1885; J1940; J2270; J2405; J2543; J2710; J2765; J3010; J3475; J3480; J3490; J7030; J7050; J7620; Q0092; Q9967